=== PATIENT | female | born 1985 | race American Indian/Alaskan Native ===

== ENCOUNTER 2018-08-12 19:50 | Emergency (ER) | payer OTHER ==
--- NOTE | 2018-08-12 20:05 | Emergency Department Report ---
Chief Complaint: Extremity Injury, Lower Stated Complaint: RT leg pain, ringing in rt ear Time Seen by Provider: 08/12/18 20:02 - HPI History of Present Illness: here with various problems 1 tinitis b ears 2 finger pain 3. leg pain; behind r knee no etoh thc rx naprosyn nsaid cream psh none lmp 07/12 mse completed MSE screening note: Focused history and physical exam performed. Due to findings the following was ordered: ED Disposition for MSE Condition: Stable
[2018-08-12 21:37] VITALS: BP 130/92
--- NOTE | 2018-08-12 22:03 | Vascular Lab Report ---
PROCEDURE: VL VENOUS DUPLEX LE RT TECHNIQUE: Duplex Doppler sonography of the right lower extremity veins. Adam scale imaging with and without compression, spectral waveform analysis with and without augmentation, and color flow Dopple r were employed. HISTORY: rle pain COMPARISONS: None FINDINGS: There is normal compressibility and blood flow. No filling defects. Normal augmentation. IMPRESSION: No evidence of deep venous thrombosis This document is electronically signed by Manuela Rodriguez MD., August 12 2018 10:01:59 PM ET
--- NOTE | 2018-08-13 00:19 | Emergency Department Report ---
ED General Adult HPI - General Chief complaint: Extremity Injury, Lower Stated complaint: RT leg pain, ringing in rt ear Time Seen by Provider: 08/12/18 20:02 Source: patient Mode of arrival: Ambulatory Limitations: No Limitations - History of Present Illness Initial comments: 32-year-old obese -Portuguese female presents to the emergency department with a myriad of concerns. She reports having had ringing in her ears, right greater than left. It earlier today spontaneously. The intensity is fluctuant children. She reports no palliative or provocative factors. She reports no nausea, presyncope, hearing loss, fever, trauma, ear pain, it discharge, neck pain. She cannot recall any precipitating factors to her knowledge. Also, she has been experiencing some pain at the right lower hamstring on the medial aspect which is worse with standing, walking and going up stairs. Pain is sharp and located just above the popliteal fossa to the medial aspect. She works on the [employer] typing a lot and is currently being treated for de Quervain's tenosynovitis on her right hand/right thumb was [employer] typing. Subsequently she noticed a small pinpoint dots to the palmar aspect of her third digit which appears to be a bruise or puncture. She does not recall being in traumatizing that region and wanted checked out as well. Reports no redness or swelling or drainage.. Pain to the hamstring at max is a 7 out of 10 Severity scale (0 -10): 7 Quality: aching, dull Consistency: constant Improves with: none Worsens with: movement Associated Symptoms: denies other symptoms. denies: chest pain, cough, diaphoresis, loss of appetite, malaise, nausea/vomiting, rash, shortness of breath, syncope, weakness - Related Data Previous Rx's Medication Instructions Recorded Last Taken Type Diclofenac Dr [Voltaren Dr] 75 mg PO Q12H #30 tablet 12/01/13 Unknown Rx traMADol [Ultram 50 MG tab] 50 mg PO Q6HR PRN #12 tablet 12/01/13 Unknown Rx hydrOXYzine HCL [Atarax] 25 mg PO Q8HR PRN #20 tablet 08/13/18 Unknown Rx Allergies Allergy/AdvReac Type Severity Reaction Status Date / Time No Known Allergies Allergy Verified 08/12/18 19:58 ED Review of Systems ROS: Stated complaint: RT leg pain, ringing in rt ear Other details as noted in HPI Constitutional: denies: chills, fever Eyes: denies: eye pain, eye discharge, vision change ENT: denies: ear pain, throat pain Respiratory: denies: cough, shortness of breath, wheezing Cardiovascular: denies: chest pain, palpitations Endocrine: no symptoms reported Gastrointestinal: denies: abdominal pain, nausea, diarrhea Genitourinary: denies: urgency, dysuria, discharge Musculoskeletal: other (leg pain). denies: back pain, joint swelling, arthralgia Skin: denies: rash, lesions Neurological: denies: headache, weakness, paresthesias Psychiatric: denies: anxiety, depression Hematological/Lymphatic: denies: easy bleeding, easy bruising ED Past Medical Hx - Past Medical History Previous Medical History?: Yes Hx Diabetes: Yes (pre diabetic) Hx Psychiatric Treatment: Yes (anxenty) Additional medical history: low Vit D. Tenosynovitis of radial styloid - Surgical History Past Surgical History?: No - Social History Smoking Status: Never Smoker Substance Use Type: Marijuana - Medications Home Medications: Home Medications Medication Instructions Recorded Confirmed Last Taken Type Diclofenac Dr [Voltaren Dr] 75 mg PO Q12H #30 tablet 12/01/13 Unknown Rx traMADol [Ultram 50 MG tab] 50 mg PO Q6HR PRN #12 tablet 12/01/13 Unknown Rx hydrOXYzine HCL [Atarax] 25 mg PO Q8HR PRN #20 tablet 08/13/18 Unknown Rx ED Physical Exam - General Limitations: No Limitations General appearance: alert, in no apparent distress - Head Head exam: Present: atraumatic, normocephalic - Eye Eye exam: Present: normal appearance, PERRL, EOMI Pupils: Present: normal accommodation - ENT ENT exam: Present: normal exam, mucous membranes moist - Neck Neck exam: Present: normal inspection - Respiratory Respiratory exam: Present: normal lung sounds bilaterally. Absent: respiratory distress - Cardiovascular Cardiovascular Exam: Present: regular rate, normal rhythm. Absent: systolic murmur, diastolic murmur, rubs, gallop - GI/Abdominal GI/Abdominal exam: Present: soft, normal bowel sounds - Extremities Exam Extremities exam: Present: normal inspection, other (this is to the right hamstring medial aspect in the area of this semitendinosus region. No popliteal masses noted. No tenderness to the calf. No cords sign. No Homans sign. Pulses 2+. No cellulitis. Pain to the hamstring with full dorsiflexion and extension of the knee.) - Back Exam Back exam: Present: normal inspection, full ROM. Absent: CVA tenderness (L) - Neurological Exam Neurological exam: Present: alert, oriented X3, CN II-XII intact, normal gait - Psychiatric Psychiatric exam: Present: normal affect, normal mood - Skin Skin exam: Present: warm, dry, intact, normal color. Absent: rash ED Course Vital Signs 08/12/18 20:17 Temperature 98.6 F Pulse Rate 82 Respiratory 16 Rate Blood Pressure 130/92 O2 Sat by Pulse 100 Oximetry Critical care attestation.: If time is entered above; I have spent that time in minutes in the direct care of this critically ill patient, excluding procedure time. ED Disposition Clinical Impression: Strain of right hamstring, Bilateral tinnitus, Normal vascular exam Disposition: - TO HOME OR SELFCARE Is pt being admited?: No Does the pt Need Aspirin: No Condition: Stable Instructions: Hamstring Injury (ED), Hinged Knee Brace (ED), Meniere Disease (ED) Prescriptions: hydrOXYzine HCL [Atarax] 25 mg PO Q8HR PRN #20 tablet PRN Reason: Itching Referrals: KAJAL MEDELLIN [Other] - 3-5 Days
== END 2018-08-13 00:45 | disposition home or self-care (01) ==
LOC: ED 19:50
DX: S76.311A Strain of muscle, fascia and tendon of the posterior muscle group at thigh level, right thigh, initial encounter (principal); H93.13 Tinnitus, bilateral; X58.XXXA Exposure to other specified factors, initial encounter; Y93.89 Activity, other specified; Y92.89 Other specified places as the place of occurrence of the external cause; Y99.8 Other external cause status